=== PATIENT | female | born 1985 | race African-American/Black ===

== ENCOUNTER 2016-11-16 17:10 | Inpatient (IN) | payer MEDICAID, SELFPAY ==
[~2016-11-16] VITALS: Ht 175.3 cm; Wt 64.2 kg
[2016-11-16] MEDS ORDERED: ONDANSETRON ODT 4 MG TAB ONE (19:36)
[2016-11-16 23:42] VITALS: BP_SYST 115; RESP 16; TEMP 99; Ht 175.3 cm; Wt 64.2 kg
[2016-11-17] MEDS ORDERED: ACETAMINOPHEN 325 MG TAB PO PRN (00:50)
[2016-11-17] MEDS ORDERED: HALOPERIDOL 5 MG/ML VIAL IM PRN (00:50)
[2016-11-17] MEDS ORDERED: DIPHENHYDRAMINE 50 MG CAP PO PRN (00:50)
[2016-11-17] MEDS ORDERED: HALOPERIDOL 5 MG TAB PO PRN (00:50)
[2016-11-17] MEDS ORDERED: LORAZEPAM 2 MG TAB PO PRN (00:50)
[2016-11-17] MEDS ORDERED: MAG HYDROX 30 ML UDC PO PRN (00:50)
[2016-11-17] MEDS ORDERED: DIPHENHYDRAMINE 50 MG/ML VIAL IM PRN (00:50)
[2016-11-17] MEDS ORDERED: LORAZEPAM 2 MG/ML VIAL IM PRN (00:50)
[2016-11-17] MEDS ORDERED: ALU/MAG/SIM 30 ML UDC PO PRN (00:50)
[2016-11-17 09:12] VITALS: BP_SYST 118; RESP 17; TEMP 98.4
[2016-11-17] MEDS: FLUOXETINE 20 MG CAP PO SCH (11:29)
[2016-11-17] MEDS: hydrOXYzine PAM 50 MG CAP PO PRN ×2 (11:30→18:19)
[2016-11-17 19:18] VITALS: BP_SYST 114; RESP 16; TEMP 98.2
[2016-11-17] MEDS: TRAZODONE 50 MG TAB PO PRN (21:36)
[2016-11-18 08:28] VITALS: BP_SYST 103; RESP 16; TEMP 98.2
[2016-11-18] MEDS: FLUOXETINE 20 MG CAP PO SCH (08:44)
[2016-11-18] MEDS: hydrOXYzine PAM 50 MG CAP PO PRN ×2 (12:09→19:50)
[2016-11-18] MEDS: NICOTINE 21 MG/24 HR TRANSDERM SCH (12:56)
[2016-11-18] MEDS ORDERED: NICOTINE 21 MG/24 HR TRANSDERM ONE (12:57)
[2016-11-18] MEDS ORDERED: LEVOFLOXACIN 250 MG TAB PO SCH (15:25)
[2016-11-18] MEDS: LEVOFLOXACIN 250 MG TAB PO SCH (17:07)
[2016-11-18 19:04] VITALS: BP_SYST 120; RESP 16; TEMP 98.7
[2016-11-18] MEDS: TRAZODONE 50 MG TAB PO PRN (22:38)
[2016-11-19] MEDS: LEVOFLOXACIN 250 MG TAB PO SCH (08:51)
[2016-11-19] MEDS: FLUOXETINE 20 MG CAP PO SCH (08:51)
[2016-11-19] MEDS: NICOTINE 21 MG/24 HR TRANSDERM SCH (08:51)
[2016-11-19] MEDS ORDERED: LEVOFLOXACIN 250 MG TAB PO SCH (09:00)
[2016-11-19 09:30] VITALS: BP_SYST 115; RESP 16; TEMP 97.6
[2016-11-19] MEDS: hydrOXYzine PAM 50 MG CAP PO PRN (12:26)
[2016-11-19 19:03] VITALS: BP_SYST 109; RESP 18; TEMP 98.3
[2016-11-19] MEDS: TRAZODONE 50 MG TAB PO PRN (21:33)
[2016-11-20] MEDS: LEVOFLOXACIN 250 MG TAB PO SCH (08:26)
[2016-11-20] MEDS: FLUOXETINE 20 MG CAP PO SCH (08:26)
[2016-11-20] MEDS: NICOTINE 21 MG/24 HR TRANSDERM SCH (08:26)
[2016-11-20] MEDS: hydrOXYzine PAM 50 MG CAP PO PRN (08:27)
[2016-11-20 09:00] VITALS: BP_SYST 115; RESP 18; TEMP 98.1
[2016-11-20] MEDS ORDERED: QUETIAPINE XR 50 MG TAB PO ONE (11:05)
[2016-11-20] MEDS: QUETIAPINE XR 50 MG TAB PO SCH (16:59)
[2016-11-20 19:00] VITALS: BP_SYST 104; RESP 20; TEMP 98.6
[2016-11-20] MEDS: TRAZODONE 50 MG TAB PO PRN (21:56)
[2016-11-21] MEDS: FLUOXETINE 20 MG CAP PO SCH (09:14)
[2016-11-21] MEDS: NICOTINE 21 MG/24 HR TRANSDERM SCH (09:16)
[2016-11-21 09:49] VITALS: BP_SYST 110; RESP 18; TEMP 98.2
[2016-11-21] MEDS: hydrOXYzine PAM 50 MG CAP PO PRN (12:05)
[2016-11-21] MEDS: QUETIAPINE XR 50 MG TAB PO SCH (17:07)
[2016-11-21 19:28] VITALS: BP_SYST 105; RESP 18; TEMP 97.7
[2016-11-21] MEDS: TRAZODONE 50 MG TAB PO PRN (21:30)
[2016-11-22] MEDS: NICOTINE 21 MG/24 HR TRANSDERM SCH (08:52)
[2016-11-22] MEDS: FLUOXETINE 20 MG CAP PO SCH (08:52)
[2016-11-22 10:00] VITALS: BP_SYST 120; RESP 16; TEMP 98.5
[2016-11-22] MEDS: hydrOXYzine PAM 50 MG CAP PO PRN (10:13)
[2016-11-22 10:38] VITALS: BP_SYST 120; RESP 16; TEMP 98.5
== END 2016-11-22 10:50 | disposition home or self-care (01) | DRG 885 ==
LOC: ENRESERVDT → ENRESERVTM → ENRESERV → ER 17:10 → EMR 20:14 → PSY 23:38
PROVIDERS: ADMIT Psychiatry & Neurology Psychiatry; ATTEND Psychiatry & Neurology Psychiatry
DX: F33.8 Other recurrent depressive disorders (principal); F10.10 Alcohol abuse, uncomplicated; F12.10 Cannabis abuse, uncomplicated; Z72.0 Tobacco use
CPT/HCPCS: 36415; 80053; 80307; 80320; 80329; 81001; 84439; 84443; 84703; 85025; 87077; 87088; 87186